=== PATIENT | male | born 1975 | race Caucasian/White ===

== ENCOUNTER 2025-03-08 07:17 | Outpatient (OUT) | payer BC, SELFPAY ==
--- OUTSIDE RECORDS SUMMARY | 2025-03-07 04:32 | XMS_ITS | Continuity of Care Document ---
Author Organization [facility] Address [address] [place] [address] Phone Care Team Providers Care Hospital Coordinator Name Role Phone Shabnam Elena DO Primary Care Provider Shabnam Elena DO Attending Provider Care Teams Patient Care Team Team Status: Active Member Role/Relationship Status Dates Shabnam Elena DO Primary Care Provider Active Patient Care Team Team Status: Inactive Member Role/Relationship Status Dates Shabnam Elena DO Primary Care Provider Active S tart: March 07, 2025 End: March 07, 2025Jejorge Elena DOAttending ProviderActiveStart: March 07, 2025 End: March 07, 2025 Chief Complaint and Reason for Visit Chief Complaint Admit Date NEW PATIENT March 07, 2025 7 :48am Reason for Visit Admit Date Encounter for annual wellness visit Octo 2024 7:48am Pain involving joint of finger of right hand March 07, 2025 7:48am Screening for colon cancer March 07, 2025 7:48am Screening for prostate cancer March 072024 7:48am Allergies, Adverse Reactions, Alerts Allergen Type Severity Reaction Last Updated Verified Status meloxicam Allergy Unknown Swelling March 07, 2025 7:58am Yes Active Social History Smoking Status Status Start Date End Date Date of Observa tion Smokes tobacco daily (finding) March 07, 2025 7:58am Observation Status Observation Response Date of Response Legal Sex [facility] (finding) [facility] 1975 Family History Relationship Condition Age at Onset Recorded Date/T amanda father Hypertension Unknown motherAsthmaUnknown Problems Active Problems Problem Diagnosis/Recorded Date Onset Date Stat us Encounter for annual wellness visit March 07, 2025 8:06am Unknown Active Screening for prostate cancer March 07, 2025 8:06a m Unknown Active Screening for colon cancer March 07, 2025 8:26am U nknown Active Elevated blood pressure reading March 07, 2025 8:3 1am Unknown Active Pain involving joint of fing er of right hand March 07, 2025 8:27am Unknown Active Smoker March 07, 2025 8:31am Unknown Ac tive Medications Medication Status Dose Units Route Directions Qty Days Refills S tart Date Stop Date End Date Reason(s) Instructions Adherence Celecoxib (Celebrex) 100 mg capsule Active 100 MG PO Twice daily 60 30 3 O ctober 2024 12:00am Complies with drug therapy Vital Signs Vital Reading Result Reference Range Collection Date/Time Height 72 [in_i] March 07, 2025 7:14zbWkcdwf66.62 [facility] 20[facility] 7:52amHeart Rate66 /nio42-723Ajoxajc 2024 7:52amRespiratory rate16 /nqj45-50Rfefrbf 2024 7:52amOxygen saturation by Pulse ounsktnc17 %95-100Octj[facility] 2024 7:52amBP Oodgubdz390 mm[Hg]100-140Octj[facility]. [facility] 2024 7:52amBP Aptvsrvze53 mm[Hg] 60-100Octjames [facility]. [facility] 2024 7:52amBMI (Body Mass Index)27.3 kg/v4Kkldtvz 2024 7:52am Advance Directives Advance Directive Response Recorded Date/ Time Advance Directives No March 06, 2025 11:01am Insurance Providers Guarantor Griffin Leavitt nbacher Address [address] [place], [place] [address]Contact Info.Home Phone: Coverage Status Update:2025 Payer Group Member ID Coverage Type Subscriber Relationship to Subscriber Effective Date Expiration Date Eryn EARLY [id number] vasquez Id: [id number] [place], [place] [id number] Home Phone: Encounters Encounter Location(s) Arrival/Admit Date Discharge/Departure Date Discharge/Departure Disposition Provider(s) Departed Physician/ Provider Office Visit -[facility] Family Medicine Raymon March 07, 2025 7:48am March 07, 2025 8:31am Discharged to home care or self care (routine discharge) Shabnam Elena , Recent Diagnosis Onset Date Admit Date Encounter for annual wellness visit Unknown March 07, 2025 7:48am Pain involving joint of finger of right hand Unk nown March 07, 2025 7:48am Screening for colon cancer Unknown Octob er 2024 7:48am Screening for prostate cancer Unknown Oc tober 2024 7:48am Assessments Diagnosis Onset Date Resolution Status Admit Date Encounter for annual wellness visit acuteOct2024 7:48amPain involving joint of finger of right handacute March 07, 2025 7:48amScreening for colon canceracuteMarch 07, 2025 7:48amScreening for prostate canceracuteMarch 07, 2025 7:48am Plan of Treatment Future Tests Future scheduled test information is unavailable Pending Tests Test Name Ordered Date Scheduled Date XR hand RT min 3V* March 07, 2025 8:29am Future Visits Future appointment information is unavailable Future Procedures Procedure Name Ordered Date Scheduled Date Complete Blood Count Auto Diff March 07 8:27am CMP with reflex to E1YSjwarqoMarch 07, 2025 8:27amC-Reactive ProteinMarch 07, 2025 8:28amErythrocyte Sedimentation RateMarch 07, 2025 8:28amLipid Panel March 07, 2025 8:27amPSA Screen (Yearly Only)March 07, 2025 8:27am Thyroid Stimulating HormoneMarch 07, 2025 8:27amUric AcidMarch 07, 2025 8:28amAMB CologuardMarch 07, 2025 8:28am Future Medications Future medication information is unavailable Patient Instructions Patient instructions are unavailable Hospital Discharge Instructions Ambulatory Orders* AMB Cologuard Time Frame: 03/07/25, Location: Determined By Patient
--- OUTSIDE RECORDS SUMMARY | 2025-03-08 07:23 | XMS_ITS | Clinical Summary ---
Author Organization [employer] Address [id number] [address] [place] [address] Care Team Providers Care Intermediate Manager Name Role Phone Mike Alan MD Primary Care Provider + [phone] Allergies Active AllergyReactionsCriticalityNoted DateCommentsMeloxicamAnaphylaxisHigh 10/19/2019 Social History Tobacco UseTypesPacks/DayYears UsedDateSmoking Tobacco: Every DayCigarettes Smokeless Tobacco: NeverChildcareAnswerDate ViaxcjrjCaumxoogyPwfepmu30/10/2019 EmploymentAnswerDate OjertjxaAzuwxxreryIzkuxvg68/10/2019Purpose - LifeAnswerDate RecordedPurpose and direction in ufxmEhmhgej70/10/2021Sex and Gender Information ValueDate RecordedSex Assigned at BirthNot on fileLegal KpoJdai7212/19/2014 4:05 PM EDTGender IdentityNot on fileSexual OrientationNot on file Last Filed Vital Signs Vital SignReadingTime TakenCommentsBlood Jdkkfmuz828/9406 11:09 AM EDT Ukfur060910/19/2019 11:09 AM HZEUdypwtojcnn16.6 ??C (97.9 ??F)10/19/2019 9:29 AM EDTRespiratory Ftrk824210/19/2019 11:09 AM EDTOxygen Xklcelpffn92%10/19/2019 11:09 AM EDTInhaled Oxygen Concentration--Cikhhh38.3 kg (210 lb)10/19/2019 9:29 AM EDT Plbugp290.9 cm (6')10/19/2019 9:29 AM EDTBody Mass Index28.4806 9:29 AM EDT Plan of Treatment Health MaintenanceDue DateLast DoneCommentsDepression Rzcwsmlce51/17/1989Tobacco Algbojfnt79/17/1989Adult BMI Qnzvlmywx42/17/1995DTaP,Tdap and Td Vaccines (1 - Tdap)08/02/1995Influenza Mmhgvrs0901/16/2025 Medical Devices Not on file Insurance Care Teams Team MemberRelationshipSpecialtyStart DateEnd Date Mike Alan MD PCP - GeneralFamily Medicine10/19/19
--- OUTSIDE RECORDS SUMMARY | 2025-03-08 07:23 | XMS_ITS | Clinical Summary ---
Author Organization [facility] Address [address] [place] [address] Care Team Providers Care Production Superintendent Hydro Name Role Phone Mike Alan MD Primary Care Provider [phone] Social History Tobacco UseTypesPacks/DayYears UsedDateSmoking Tobacco: Never AssessedSex and Gender InformationValueDate RecordedSex Assigned at BirthNot on fileLegal Sex Male07/30/2022 7:23 PM EDTGender IdentityNot on fileSexual OrientationNot on file Last Filed Vital Signs Vital SignReadingTime TakenCommentsBlood Pressure--Pulse--Temperature-- Respiratory Rate--Oxygen Saturation--Inhaled Oxygen Concentration--Gptdpr77.2 kg (212 lb)10/18/2019 12:00 PM HOOVwtybm694.9 cm (6')10/18/2019 12:00 PM EDTBody Mass Index28.75010/18/2019 12:00 PM EDT Plan of Treatment Not on file Care Teams Team MemberRelationshipSpecialtyStart DateEnd Date Mike Alan MD [address] [place] [address] PCP - GeneralFamily Medicine09/23/22
--- NOTE | 2025-03-08 07:37 | XR_ITS ---
The [address] [address] Patient Name: LANCE LOPEZ MRN: [id number] date: 1975 Sex: M Assigned Patient Location: LAB Current Patient Location: LAB Accession/Order Number: [id number] Exam Date: 03/08/2025 07:46 Report Date: 03/08/2025 09:06 At the request of: SARAH KONG DO Procedure: XR hand RT min 3V RIGHT HAND - 3 views CLINICAL DATA: Pain at the third finger for the past 2 months. No injury. COMPARISON: None AP, lateral and oblique views were obtained. There is no evidence of fracture or dislocation. No disproportionate joint space narrowing is present. There is mild marginal spurring at the third metacarpal phalangeal joint. Minimal soft tissue swelling is seen over the dorsum of the metacarpal heads. XR/XR hand RT min 3V IMPRESSION: MILD DEGENERATIVE CHANGE AT THE THIRD METACARPAL PHALANGEAL JOINT. NO ACUTE BONY FINDINGS. Impression dictated by: Olivia Young M.D. 03/08/2025 9:06 AM Dictation Location: [place] [address] Electronically authenticated by: [id number] Y Date: 03/08/2025 09:06
[2025-03-08 07:50] LABS: Hematocrit 45.4 % (42.0-54.0); Hemoglobin 16.1 g/dL (14.0-18.0); Immature Granulocytes Abs Auto 0.02 10^3/uL (0.00-0.03); Immature Granulocytes Pct Auto 0.2 % (0.0-0.5); Lymphocytes Absolute Auto 2.0 10^3/uL (1.2-3.8); Mean Corpuscular HGB Conc 35.5 g/dL (29.9-35.2); Mean Corpuscular Hemoglobin 32.9 pg (25.9-34.0); Mean Corpuscular Volume 92.7 fL (80.0-94.0); Platelet Count 298 10^3/uL (150-450); Red Blood Count 4.90 10^6/uL (4.70-6.10); White Blood Count 8.0 10^3/uL (4.0-11.0)
[2025-03-08 09:30] LABS: Alanine Aminotransferase 39 U/L (16-63); Albumin Globulin Ratio 1.1; Albumin Level 3.6 g/dL (3.4-5.0); Alkaline Phosphatase 105 U/L (46-116); Anion Gap 12.7; Aspartate Amino Transferase 21 U/L (15-37); Blood Urea Nitrogen 14.0 mg/dL (7.0-18.0); Calcium 8.4 mg/dL (8.5-10.1); Carbon Dioxide 26.4 mmol/L (21.0-32.0); Chloride 105 mmol/L (98-107); Cholesterol 179 mg/dL (<=200); Estimated GFR (African America >60 (>=60 mL/min/1.73m^2); Estimated GFR (Non-African Ame >60 (>=60 mL/min/1.73m^2); Globulin 3.2 g/dL; Glucose 100 mg/dL (74-106); HDL Cholesterol 39 mg/dL (40-60); Potassium 4.1 mmol/L (3.5-5.1); Sodium 140 mmol/L (136-145); Thyroid Stimulating Hormone 1.473 uIU/mL (0.358-3.740); Total Protein 6.8 g/dL (6.4-8.2); Triglycerides 107 mg/dL (<=150); Uric Acid 3.9 mg/dL (3.5-7.2); VLDL CHOLESTEROL 21.4 mg/dL
== END 2025-03-08 07:18 | disposition home or self-care (01) ==
LOC: LAB 07:20
PROVIDERS: PCP Family Medicine; Visit Provider Family Medicine
DX: Z00.00 Encounter for general adult medical examination without abnormal findings (principal); M79.671 Pain in right foot; M77.31 Calcaneal spur, right foot; Z12.5 Encounter for screening for malignant neoplasm of prostate; M25.541 Pain in joints of right hand
CPT/HCPCS: 36415; 73130; 73630; 80053; 80061; 84443; 84550; 85025; 85652; 86140; G0103

== ENCOUNTER 2025-03-08 07:46 | Outpatient (OUT) | payer BC, SELFPAY ==
--- NOTE | 2025-03-08 07:50 | XR_ITS ---
The [address] [address] Patient Name: LANCE LOPEZ MRN: [id number] date: 1975 Sex: M Assigned Patient Location: [facility] Current Patient Location: LAB Accession/Order Number: [id number] Exam Date: 03/08/2025 07:50 Report Date: 03/08/2025 09:08 At the request of: NADEGE SIMMONS DPFaizan Procedure: XR foot RT min 3V RIGHT FOOT - 3 views CLINICAL DATA: Chronic right heel pain worsening over the past few months. COMPARISON: None Weightbearing AP, lateral and oblique views were obtained. There is no acute fracture or dislocation. A plantar calcaneal spur is visualized. There are no significant soft tissue abnormalities. XR/XR foot RT min 3V IMPRESSION: CALCANEAL SPUR. NO ACUTE BONY FINDINGS. Impression dictated by: Olivia Young M.D. 03/08/2025 9:08 AM Dictation Location: [place] [address] Electronically authenticated by: [id number] Y Date: 03/08/2025 09:08
--- OUTSIDE RECORDS SUMMARY | 2025-03-08 07:51 | XMS_ITS | Clinical Summary ---
Author Organization [employer] Address [id number] [address] [place] [address] Care Team Providers Care School Administrator Name Role Phone Mike Alan MD Primary Care Provider + [phone] Allergies Active AllergyReactionsCriticalityNoted DateCommentsMeloxicamAnaphylaxisHigh 10/19/2019 Social History Tobacco UseTypesPacks/DayYears UsedDateSmoking Tobacco: Every DayCigarettes Smokeless Tobacco: NeverChildcareAnswerDate TqssbjahVfrmqbrvuIplhsgi81/10/2019 EmploymentAnswerDate UmqgnsrxUqrveserueVqhfybr54/10/2019Purpose - LifeAnswerDate RecordedPurpose and direction in ppflWcfofqw26/10/2021Sex and Gender Information ValueDate RecordedSex Assigned at BirthNot on fileLegal CyiOlap3612/19/2014 4:05 PM EDTGender IdentityNot on fileSexual OrientationNot on file Last Filed Vital Signs Vital SignReadingTime TakenCommentsBlood Awusdake022/9406 11:09 AM EDT Picbt618810/19/2019 11:09 AM MKLUxwyddzvbow61.6 ??C (97.9 ??F)10/19/2019 9:29 AM EDTRespiratory Hwex714210/19/2019 11:09 AM EDTOxygen Astpecwifp57%10/19/2019 11:09 AM EDTInhaled Oxygen Concentration--Kmhqis11.3 kg (210 lb)10/19/2019 9:29 AM EDT Rxbvek691.9 cm (6')10/19/2019 9:29 AM EDTBody Mass Index28.4806 9:29 AM EDT Plan of Treatment Health MaintenanceDue DateLast DoneCommentsDepression Yqpzwtzdf86/17/1989Tobacco Bsyfcbcxg76/17/1989Adult BMI Xafnxmyga12/17/1995DTaP,Tdap and Td Vaccines (1 - Tdap)08/02/1995Influenza Szjoiui8801/16/2025 Medical Devices Not on file Insurance Care Teams Team MemberRelationshipSpecialtyStart DateEnd Date Mike Alan MD PCP - GeneralFamily Medicine10/19/19
--- OUTSIDE RECORDS SUMMARY | 2025-03-08 07:51 | XMS_ITS | Clinical Summary ---
Author Organization [facility] Address [address] [place] [address] Care Team Providers Care Vp Product Marketing Name Role Phone Mike Alan MD Primary Care Provider [phone] Social History Tobacco UseTypesPacks/DayYears UsedDateSmoking Tobacco: Never AssessedSex and Gender InformationValueDate RecordedSex Assigned at BirthNot on fileLegal Sex Male07/30/2022 7:23 PM EDTGender IdentityNot on fileSexual OrientationNot on file Last Filed Vital Signs Vital SignReadingTime TakenCommentsBlood Pressure--Pulse--Temperature-- Respiratory Rate--Oxygen Saturation--Inhaled Oxygen Concentration--Bebvfz98.2 kg (212 lb)10/18/2019 12:00 PM TTBOojhub739.9 cm (6')10/18/2019 12:00 PM EDTBody Mass Index28.75010/18/2019 12:00 PM EDT Plan of Treatment Not on file Care Teams Team MemberRelationshipSpecialtyStart DateEnd Date Mike Alan MD [address] [place] [address] PCP - GeneralFamily Medicine09/23/22
== END 2025-03-08 07:47 | disposition home or self-care (01) ==
PROVIDERS: PCP Family Medicine; Visit Provider Podiatrist Foot & Ankle Surgery
DX: M79.671 Pain in right foot (principal); M77.31 Calcaneal spur, right foot
CPT/HCPCS: 73630

== ENCOUNTER 2025-03-15 16:55 | Outpatient (RCR) | payer BC, SELFPAY | END 2025-04-12 06:48 | disposition home or self-care (01) | LOC: PT 16:55 | PROVIDERS: PCP Family Medicine; Visit Provider Podiatrist Foot & Ankle Surgery | DX: M72.2 Plantar fascial fibromatosis (principal) | CPT/HCPCS: 97035; 97110; 97140; 97161 ==

== ENCOUNTER 2025-05-08 12:36 | Outpatient (OUT) | payer BC, SELFPAY ==
--- OUTSIDE RECORDS SUMMARY | 2025-05-05 09:00 | XMS_ITS ---
Author Organization [facility] Address [address] [place] [address] Care Team Providers Care Installment Loan Collector Name Role Phone Jamie Bruno Unavailable [phone] Anaya Briana Unavailable [phone] Reason For Referral Reason RAYNA.......PLEASE OBT AIN AUTHORIZATION FOR LEFT ELBOW MRI AT [facility] Diagnosis 1 Left elbow pain (M25 .522) Referral Organization [facility] Referring Provider First Name Briana Referring Provider Last Name Anaya Referring Provider Speciality Nurse Prac titioner Referred Organization [facility] Referred Address [place], [place], Procedure 1 MRI Joint Upper Ext w/o Dye ([address]) General Notes Sil Perdomo 025 03:05:14 PM >NO DICTATIONKathy Monica 05/08/2025 08:16:22 AM >dictation doneLeanne Amy 05/08/2025 09:12:47 AM >NO CARD IN CHART .....PER DIANNA, SHARON AUTH REQIRED. The following solutions for the service date entered do not require Pre-Authorization by Dianna. Please note that benefit limits, if applicable, will still be applied. Contact the health plan using the number on the back of the member's ID card if you have any questions regarding coverage or Pre-Authorization requirements. COPY IN CHART MA NOTIFIED REF FAXED TO Marly SHAW Kimberly 05/08/2025 09:47:01 AM > Faxed order to Karla Referral Priority Stat REASON FOR VISIT LEFT ELBOW PAIN Encounters Encounter Location Date Provider Diagnosis [facility] [address] [place] [phone] 05/05/2025 Briana Julien Left elbow pain M25.522 Assessments Encounter Date Diagnosis (ICD Code) Assessment Notes Treatment Notes Treatment Clinical Notes Section Notes 05/05/2025 Left elbow pain (ICD-10 - M25.52 2) 05/05/2025Other I have recommended an urgent MRI of the right elbow to evaluate for a distal bicep tendon rupture. He will not lift push or pull with the left arm. We did give him a sample of Journavyx. We will follow-up with him early next week to discuss the MRI results. Plan has been agreed upon by my supervising physician, Dr. Kiana MD.. Plan Of Treatment Treatment Notes Assessment Notes Other I have recommended an urgent MRI of the right elbow to evaluate for a distal bicep tendon rupture. He will not lift push or pull with the left arm. We did give him a sample of Journavyx. We will follow-up with him early next week to discuss the MRI results. Plan has been agreed upon by my supervising physician, Dr. Kiana MD.. Pending Test Test Name Order Date MRI ELBOW LEFT WO CONTRAST 05/05/2025 SCC- ELBOW 3 VIEW LEFT 11329 05/05/2025 Referrals Referral Date Details 05/05/2025 05/05/2025, RAYNA..... ..PLEASE OBTAIN AUTHORIZATION FOR LEFT ELBOW MRI AT [place], [place] Next Appt Details Provider Name:Jamie Robertson and, 05/08/2025 02:45:00 PM, [address] [place] [address] , [place] [address], [place], [address], Progress Notes * LANCE LOPEZ RDOB: (49 yo M)Acc No.[id number]:05/05/2025 Patient:?LANCE LOPEZ :?Briana Julien CNPDOB:1975???Age:49 Y ???Sex:MaleDate:05/05/2025Phone:[phone]:[address] [address] Subjective: * Chief Complaints: * 1 . LEFT ELBOW PAIN. * HPI: ???General Info per Patient Report:? Patient presents today for evaluation of his left elbow. On 04/18/2025 he slipped on ice and grabbed something trying to catch himself and felt an acute pop to hiselbow and weakness after. He tried to rest it to see if it would get better then had another injurycausing increased pain again. He said it is really painful at the crease bend of his elbow is unable to flex or lift anything with that arm. * Medical History: M edical History Verified. * Family History: N o Family History documented.. Objective: * Vitals: * Examination: ???General examination: ???The patient is a age-appropriate 49-year-old male, alert and oriented x3 and in no acute distress. Well-dressed and well-groomed. Stands with normal body position and in a calm mood. On examination today there is a negative hook test and significant tenderness to the distal bicep and radial tuberosity unable to flex his bicep significant weakness with bicep curl. Pain with pronation and pronation of the forearm. No lymphadenopathy. Skin is intact throughout the extremities withno open wounds or lesions. No masses appreciated. Palpable pulses distally and brisk capillary refill. Deep tendon reflexes are intact and symmetric. Intact sensation to light touch. No deformity on inspection. specific exam: x-ray imaging studies: X-ray 3 views of the left elbow taken at [facility] today and interpreted by me show an avulsion fracture off the radial tuberosity concerning for a distal bicep tendon rupture. There is calcification noted at the lateral condyle consistent with chronic epicondylitis. Subtle lucency at the radial head concerning for an occult fracture of the radial head specific exam: x-ray imaging studies: Assement:. ??? Assessment: * Assessment: 1.?Left elbow pain - M25.522??? Plan: * Treatment: ?Imaging: MRI ELBOW LEFT WO CONTRAST ?Imaging: SCC- ELBOW 3 VIEW LEFT [address]? Referral To: ?Reason:RAYNA.......PLEASE OBTAIN AUTHORIZATION FOR LEFT ELBOW MRI AT [facility] 2.?Others? Notes: I have recommended an urgent MRI of the right elbow to evaluate for a distal bicep tendon rupture. He will not lift push or pull with the left arm. We did give him a sample of Journavyx. We will follow-up with him early next week to discuss the MRI results. Plan has been agreed upon by my supervising physician, Dr. Kiana MD..?? Forms: * Images: * Electronic signature of Briana Julien CNP on 05/08/2025 at 12:38 PM ESTSign off status: Pending * Provider: Jose R Julien CNP Date: 07/06/2024 Generated for Printing/Faxing/eTransmitting on:?05/08/2025 12:38 PM EST History and Physical Notes * HPI (History of Present Illness) CategorySub-CategoryDetailNotesCategory NotesGeneral Info per Patient Report Patient presents today for evaluation of his left elbow. On 04/18/2025 he slipped on ice and grabbedsomething trying to catch himself and felt an acute pop to his elbow and weakness after. He tried to rest it to see if it would get better then had another injury causing increased pain again. He said it is really painful at the crease bend of his elbow is unable to flex or lift anything with that arm. Examination CategorySub-CategoryDetailNotesCategory NotesGeneral examination The patient is a age-appropriate 49-year-old male, alert and oriented x3 and in no acute distress. Well-dressed and well-groomed. Stands with normal body position and in a calm mood. On examination today there is a negative hook test and significant tenderness to the distal bicep and radial tuberosity unable to flex his bicep significant weakness with bicep curl. Pain with pronation and pronation of the forearm. No lymphadenopathy. Skin is intact throughout the extremities withno open wounds or lesions. No masses appreciated. Palpable pulses distally and brisk capillary refill. Deep tendon reflexes are intact and symmetric. Intact sensation to light touch. No deformity on inspection. specific exam: x-ray imaging studies: X-ray 3 views of the left elbow taken at [facility] today and interpreted by me show an avulsion fracture off the radial tuberosity concerning for a distal bicep tendon rupture. There is calcification noted at the lateral condyle consistent with chronic epicondylitis. Subtle lucency at the radial head concerning for an occult fracture of the radial head specific exam: x-ray imaging studies: Assement: Consultation Request Notes Referral Date Referring Provider Referred Provider Not korina 05/05/2025 Briana Julien NAR.......MARIELLE TORRES OBTAIN AUTHORIZATION FOR LEFT ELBOW MRI AT [facility]
--- OUTSIDE RECORDS SUMMARY | 2025-05-05 13:24 | XMS_ITS | Encounter Summary ---
Author Organization [facility] Address [address] [place] [address] Care Team Providers Care Paper Products Printer Name Role Phone Shabnam Elena DO Primary Care Provider [phone] Reason for Referral * Diagnostic X-Ray (Routine) - Pending ReviewSpecialtyDiagnoses / Procedures Referred By ContactReferred To Contact Diagnoses Left elbow pain Procedures XR ELBOW LEFT 3+ VIEWS Jamie Bruno MD [address] [place] [address] Phone: tel: fax: [address] [address] Referral IDStatusReasonStart DateExpiration DateVisits RequestedVisits [id number] Reason for Visit * Diagnostic X-Ray (Routine) - Pending ReviewSpecialtyDiagnoses / Procedures Referred By ContactReferred To Contact Diagnoses Left elbow pain Procedures XR ELBOW LEFT 3+ VIEWS Jamie Bruno MD [address] [place] [address] Phone: tel: fax: [address] [address] Referral IDStatusReasonSteast livermore DateExpiration DateVisits RequestedVisits [id number]/ Encounter Details DateTypeDepartmentCare Team (Latest Contact Info)Fsyulwjhwyq72/19/2025 1:24 PM EST - 05/05/2025 11:59 PM ESTHospital Encounter [facility] [address] [place] [phone] Jamie Bruno MD [address] [place] [address] Arrived Discharge Disposition: Home or Self Care Social History Tobacco UseTypesPacks/DayYears UsedDateSmoking Tobacco: Never AssessedSex and Gender InformationValueDate RecordedSex Assigned at BirthNot on fileLegal Sex Male05/04/2025 12:12 PM ESTGender IdentityNot on fileSexual OrientationNot on filedocumented as of this encounter Plan of Treatment Not on file documented as of this encounter Procedures Procedure NamePriorityDate/TimeAssociated DiagnosisCommentsXR ELBOW LEFT 3+ VWXRRLzanpxw05/19/2025 1:35 PM EST Left elbow pain documented in this encounter Results * XR ELBOW LEFT 3+ VIEWS (05/05/2025 1:35 PM EST)Anatomical RegionLaterality Modalityelbow, MSKLeftComputed RadiographySpecimen (Source)Anatomical Location / LateralityCollection Method / VolumeCollection TimeReceived Time05/05/2025 1:28 PM EST Impressions 05/05/2025 1:54 PM EST IMPRESSION: Left elbow radiographs show no evidence of abnormalities. Narrative 05/05/2025 1:54 PM EST PROCEDURE: XR ELBOW LEFT 3+ VIEWS DATE: 05/05/2025 1:28 PM EST COMPARISONS: None CLINICAL INDICATION: Left elbow pain FINDINGS: There is no evidence of fractures or other osseous abnormalities. No evidence of elbow joint effusion. Procedure Note Ross Cárdenas MD - 05/05/2025 PROCEDURE: XR ELBOW LEFT 3+ VIEWS DATE: 05/05/2025 1:28 PM EST COMPARISONS: None CLINICAL INDICATION: Left elbow pain FINDINGS: There is no evidence of fractures or other osseous abnormalities. No evidence of elbow joint effusion. IMPRESSION IMPRESSION: Left elbow radiographs show no evidence of abnormalities. Authorizing ProviderResult TypeResult StatusStevharry Bruno MDDIAGNOSTIC IMAGING ORDERABLESFinal Result documented in this encounter Visit Diagnoses Diagnosis Left elbow pain Pain in joint, upper arm documented in this encounter Care Teams Team MemberRelationshipSpecialtyStart DateEnd Date Ulices, Shabnam, DO [address] [address] PCP - GeneralFamily Aqiizbcw74/19/25documented as of this encounter
--- NOTE | 2025-05-08 12:38 | MR_ITS ---
[place] [address] Patient Name: LANCE LOPEZ MRN: [id number] date: 1975 Sex: M Assigned Patient Location: MRI Current Patient Location: MRI Accession/Order Number: [id number] Exam Date: 05/08/2025 12:50 Report Date: 05/08/2025 23:09 At the request of: TERESITA PINA NP Procedure: MR elbow LT wo con MRI the left elbow without contrast Routine technique HISTORY: Fell. Left anterior abdominal pain. Unable to fully straighten left arm. Retracted full-thickness tear of the distal biceps tendon arising from the radial tuberosity. Heterogeneous signal changes of the tendon consistent with recent tear. Adjacent edema and hematoma consistent with recent tear. Tendon retracted up to 6 cm. Triceps tendon intact. No bone marrow edema. No linear fracture. Adequate bony alignment. The collateral ligaments intact. The common flexor and extensor and patellar tendons intact. Remaining musculature intact. Subcutaneous edema consistent with bruising. MR/MR elbow LT wo con IMPRESSION: Recent Retracted full-thickness tear of the distal biceps tendon arising from the greater tuberosity. Impression dictated by: Carlos John M.D. 05/08/2025 11:09 PM Dictation Location[facility] Electronically authenticated by: [id number] Y Date: 05/08/2025 23:09
--- OUTSIDE RECORDS SUMMARY | 2025-05-08 12:38 | XMS_ITS | Clinical Summary ---
Author Organization [facility] Address [address] [place] [address] Care Team Providers Care Wood Machinist Apprentice Name Role Phone Mike Alan MD Primary Care Provider [phone] Social History Tobacco UseTypesPacks/DayYears UsedDateSmoking Tobacco: Never AssessedSex and Gender InformationValueDate RecordedSex Assigned at BirthNot on fileLegal Sex Male07/30/2022 7:23 PM EDTGender IdentityNot on fileSexual OrientationNot on file Last Filed Vital Signs Vital SignReadingTime TakenCommentsBlood Pressure--Pulse--Temperature-- Respiratory Rate--Oxygen Saturation--Inhaled Oxygen Concentration--Etngmc10.2 kg (212 lb)10/18/2019 12:00 PM SUMIypimk174.9 cm (6')10/18/2019 12:00 PM EDTBody Mass Index28.75010/18/2019 12:00 PM EDT Plan of Treatment Not on file Care Teams Team MemberRelationshipSpecialtyStart DateEnd Date Mike Alan MD [address] [place] [id number] PCP - GeneralFamily Medicine09/23/22
--- OUTSIDE RECORDS SUMMARY | 2025-05-08 12:39 | XMS_ITS | Clinical Summary ---
Author Organization [facility] Address [address] [place] [address] Care Team Providers Care Sales Department Supervisor Name Role Phone Shabnam Elena DO Primary Care Provider [phone] Encounters DateTypeDepartmentCare RpjuFkvbrxlvlem30/19/2025 1:24 PM EST - 05/05/2025 11:59 PM ESTHospital Encounter [facility] [place] [facility] [address] [place] [id number] Jamie Bruno MD Arrived Discharge Disposition: Home or Self Carefrom Last 3 Months Social History Tobacco UseTypesPacks/DayYears UsedDateSmoking Tobacco: Never AssessedSex and Gender InformationValueDate RecordedSex Assigned at BirthNot on fileLegal Sex Male05/04/2025 12:12 PM ESTGender IdentityNot on fileSexual OrientationNot on file Plan of Treatment Health MaintenanceDue DateLast DoneCommentsHEPATITIS C VIRUS LMOIBAVUM05/17/1977 NYHSRLO89 1975HIV SCREENING TAPERINWYW20/17/1992HEP B VACCINE (1 of 3 - 19+ 3-dose series)08/02/1995TDAP (ADULT)08/02/1995LIPID LZZPGFHDA78/17/2017 COLORECTAL CANCER SCREENING WFQGLKPPPS66/17/2022COVID-19 VACCINE (2024- season)2025INFLUENZA VACCINE (#1)2025PNEUMOCOCCAL VACCINE SERIESAged OutNo longer eligible based on patient's age to complete this topic Procedures Procedure NamePriorityDate/TimeAssociated DiagnosisCommentsXR ELBOW LEFT 3+ ULVTRDchuthm18/19/2025 1:35 PM EST Left elbow pain from Last 3 Months Results * XR ELBOW LEFT 3+ VIEWS [...] no evidence of abnormalities. Authorizing ProviderResult TypeResult StatusStMunson Healthcare [facility] MDDIAGNOSTIC IMAGING ORDERABLESFinal Result from Last 3 Months Insurance Care Teams Team MemberRelationshipSpecialtyStart DateEnd Date Shabnam Elena DO [address] [address] [facility]05/05/25
--- OUTSIDE RECORDS SUMMARY | 2025-05-08 12:39 | XMS_ITS | Patient Health Record ---
Author Organization [employer] [facility] Address [address] [address], [place] [address] Care Team Providers Care Mold Builder Name Role Phone Shabnam Elena Primary Care Provider UnavailDarren Hayes Unavailable [phone] Allergies Allergen (clinical drug ingredient) Drug/Non Drug Allergy documented on EMR Reaction Allergy Type Onset Date Status meloxicam Meloxicam Unknown Drug Allergy Active Reason For Referral No Information Medications Medication SIG (Take, Route, Frequency, Duration) Notes Start Date End Date Status Celecoxib 100 MG Capsule TAKE 1 CAPSULE BY MOUTH TWICE A DAY Oral; Duration: 30 Days Active Social History Section Notes: Patient is a current smoker. Social alcohol use. 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 [address] [address], [place] [address] 03/10/2025 Darren Bright Plantar fascial fibromatosis of right foot M72.2 Assessments Encounter Date Diagnosis (ICD Code) Assessment Notes Treatment Notes Treatment Clinical Notes Section Notes 03/10/2025 Plantar fascial fibromatosis of right foot (ICD-10 - M72.2) Patient seen and evaluated. Patient education provided and all questions answered to satisfaction. X-rays obtained and reviewed which are negative for acute bony process. Small plantar calcaneal spuris noted. - Achilles/calf stretching emphasized & demonstrated. Handout provided & recommended stretching at least 3x per day. - Discussed NSAIDS and patient recently was rx celebrex by his PCP which does seem to help. He may also use topical voltaren prn - Discussed potential use of plantar fascial injection - will hold off for now - Recommended physical therapy with modalities: US, E-stim & dry needling. Order provided - Discussed OTC orthotics, night splint, RICE therapy and massage. Plan Of Treatment No Information Insurance Providers Payer Name Payer Address Payer Phone Subscriber Number Group Number Insured Name Patient Relationship to Insured Coverage Start Date Coverage End Date [facility] [address] [place] [address] [id number] Anahy Frank - patient is the spouse of the insured Medical (General) History Medical History History ICD Code Arthritis Surgical History Surgery Date(Month/Year) Meniscus Repair AppendectomyLeft Middle Finger
--- OUTSIDE RECORDS SUMMARY | 2025-05-08 12:39 | XMS_ITS | Patient Health Record ---
Author Organization [facility] Address [address] [place] [address] Care Team Providers Care Filtering Machine Tender Helper Name Role Phone Jamie Bruno Unavailable [phone] Anaya Briana Unavailable [phone] Reason For Referral Reason RAYNA.......PLEASE OBT AIN AUTHORIZATION FOR LEFT ELBOW MRI AT [facility] Diagnosis 1 Left elbow pain (M25 .522) Referral Organization [facility] Referring Provider First Name Briana Referring Provider Last Name Anaya Referring Provider Speciality Nurse Quoc titioner Referred Organization [facility] Referred Address [place], [place], Procedure 1 MRI Joint Upper Ext w/o Dye ([id number]) General Notes Sil Perdomo 025 03:05:14 PM [...] Faxed order to Karla Referral Priority Stat Encounters Encounter Location Date Provider Diagnosis [facility] [address] [place] [phone] 05/05/2025 Briana Julien Left elbow pain M25.522 [...] physician, Dr. Kiana MD.. Plan Of Treatment Pending Test Test Name Order Date MRI ELBOW LEFT WO CONTRAST 05/05/2025 [facility]- ELBOW 3 VIEW LEFT [id number] 05/05/2025 Next Appt Details Provider Name:Jamie Robertson and, 05/08/2025 02:45:00 PM, [address] [facility] , [address] [place] [address], [place], [address], Insurance Providers Payer Name Payer Address Payer Phone Subscriber Number Group Number Insured Name Patient Relationship to Insured Coverage Start Date Coverage End Date Eryn [place]ABILLON [address] [place] [phone] [id number] LANCE OJ Self - patient is the insured 5
--- NOTE | 2025-05-08 12:47 | XR_ITS ---
The [address] [address] Patient Name: LANCE LOPEZ MRN: [id number] date: 1975 Sex: M Assigned Patient Location: MRI Current Patient Location: MRI Accession/Order Number: [id number] Exam Date: 05/08/2025 12:48 Report Date: 05/08/2025 12:54 At the request of: TERESITA PINA NP Procedure: XR foreign body eye NOAH ORBITS FOR FOREIGN BODY-2 views COMPARISON: None CLINICAL DATA: MRI clearance Lateral and Curry views were obtained. No radiopaque orbital foreign bodies are identified. The left maxillary sinus is smaller than the right. XR/XR foreign body eye NOAH IMPRESSION: NO EVIDENCE OF ORBITAL RADIOPAQUE FOREIGN BODY. Impression dictated by: Olivia Young M.D. 05/08/2025 12:54 PM Dictation Location: [place] [address] Electronically authenticated by: [id number] Y Date: 05/08/2025 12:54
== END 2025-05-08 12:37 | disposition home or self-care (01) ==
LOC: MRI 12:36
PROVIDERS: PCP Family Medicine; Visit Provider Nurse Practitioner
DX: M25.522 Pain in left elbow (principal); S46.212A Strain of muscle, fascia and tendon of other parts of biceps, left arm, initial encounter
CPT/HCPCS: 70030; 73221